=== PATIENT | female | born 1950 | race Caucasian/White ===

== ENCOUNTER 2016-09-21 22:26 | Emergency (ER) | payer BC ==
[2015-09-30 12:41] VITALS: BMI 23.5
[~2016-09-21 22:26] MED LIST: ACID REFLUX MED; ATARAX 25 MG TA25 MG PO; ESGIC TABLET1 TAB PO; KLONOPIN1 MG PO; LEVAQUIN750 MG PO; NEURONTIN 300300 MG PO; OGEN1.5 MG PO; PEPCID AC20 MG PO; PERCOCET 10/3251 TA1 PO; SYNTHROID50 MCG PO; ZOFRAN ODT4 MG/UDTAB PO; ZOLOFT100 MG PO
== END 2016-09-22 00:35 | disposition left against medical advice (07) ==
LOC: D.ER 22:26
DX: M25.551 Pain in right hip (principal)

== ENCOUNTER 2016-10-18 09:49 | Emergency (ER) | payer MEDICARE, BC ==
[2015-09-30 12:41] VITALS: BMI 23.5
== END 2016-10-18 12:19 | disposition home or self-care (01) ==
LOC: D.ER 09:49
DX: R42 Dizziness and giddiness (principal); S90.121A Contusion of right lesser toe(s) without damage to nail, initial encounter; W19.XXXA Unspecified fall, initial encounter; Y93.89 Activity, other specified; Y92.014 Private driveway to single-family (private) house as the place of occurrence of the external cause; S29.011A Strain of muscle and tendon of front wall of thorax, initial encounter

== ENCOUNTER 2016-10-26 16:29 | Emergency (ER) | payer MEDICARE, BC ==
[2015-09-30 12:41] VITALS: BMI 23.5
== END 2016-10-26 19:30 | disposition home or self-care (01) ==
LOC: D.ER 16:29
DX: R42 Dizziness and giddiness (principal); H60.502 Unspecified acute noninfective otitis externa, left ear; E03.9 Hypothyroidism, unspecified

== ENCOUNTER 2016-11-28 11:49 | Emergency (ER) | payer MEDICARE, BC ==
[2015-09-30 12:41] VITALS: BMI 23.5
== END 2016-11-28 14:52 | disposition home or self-care (01) ==
LOC: D.ER 11:49
DX: S20.212A Contusion of left front wall of thorax, initial encounter (principal); X58.XXXA Exposure to other specified factors, initial encounter; Y93.89 Activity, other specified; Y92.019 Unspecified place in single-family (private) house as the place of occurrence of the external cause; E03.9 Hypothyroidism, unspecified

== ENCOUNTER 2017-01-05 07:51 | Emergency (ER) | payer MEDICARE, BC ==
[2015-09-30 12:41] VITALS: BMI 23.5
== END 2017-01-05 09:13 | disposition home or self-care (01) ==
LOC: D.ER 07:51
DX: G89.29 Other chronic pain (principal); E03.9 Hypothyroidism, unspecified

== ENCOUNTER 2017-02-17 14:13 | Emergency (ER) | payer MEDICARE, BC ==
[2015-09-30 12:41] VITALS: BMI 23.5
== END 2017-02-17 15:17 | disposition home or self-care (01) ==
LOC: D.ER 14:13
DX: G89.29 Other chronic pain (principal)

== ENCOUNTER 2017-03-28 10:10 | Emergency (ER) | payer MEDICARE, BC ==
[2015-09-30 12:41] VITALS: BMI 23.5
== END 2017-03-28 11:55 | disposition home or self-care (01) ==
LOC: D.ER 10:10
DX: M54.30 Sciatica, unspecified side (principal); M54.5 Low back pain; M25.50 Pain in unspecified joint; R51 Headache

== ENCOUNTER 2017-04-06 01:59 | Emergency (ER) | payer MEDICARE, BC ==
[2015-09-30 12:41] VITALS: BMI 23.5
== END 2017-04-06 02:45 | disposition home or self-care (01) ==
LOC: D.ER 01:59
DX: G89.29 Other chronic pain (principal); R19.7 Diarrhea, unspecified; R11.0 Nausea

== ENCOUNTER 2017-04-15 08:52 | Observation (INO) | payer MEDICARE, BC ==
[~2017-04-15] VITALS: Ht 170.2 cm; Wt 65.9 kg
[2017-04-15 09:27] LABS: BASOPHILS 0.1 % (0-2); EOSINOPHILS 0.5 % (0-7); HEMATOCRIT 39.9 % (36.0-48.0); HEMOGLOBIN 13.5 g/dL (12-16); IMMATURE GRANULOCYTES 1.6 % (0-5); LYMPHOCYTES 21.6 % (15-50); MCH 28.6 pg (26.0-34.0); MCHC 33.8 g/dL (31.0-37.0); MCV 84.5 fL (80.0-100.0); MEAN PLATELET VOLUME 8.7 fL (7.4-10.4); MONOCYTES 9.8 % (2-11); NEUTROPHILS 66.4 % (40-80); PLATELET COUNT 202 10x3/uL (130-400); RBC 4.72 10x6/uL (4.00-5.40); RDW 14.1 % (11.5-14.5); WBC 8.5 10x3/uL (4.8-10.8)
[2017-04-15 09:42] LABS: ALBUMIN 3.4 g/dL (3.4-5.0); ALKALINE PHOSPHATASE 137 U/L (46-116); ALT (SGPT) 69 U/L (10-68); BILIRUBIN - TOTAL 0.56 mg/dL (0.2-1.3); CALC OSMOLALITY 275 mosm/kg (275-300); CALCIUM 8.4 mg/dL (8.5-10.1); CARBON DIOXIDE 25.9 mmol/L (21.0-32.0); CHLORIDE - SERUM 102 mmol/L (98-107); CREATININE - SERUM 0.8 mg/dL (0.6-1.3); GLUCOSE 94 mg/dL (74-106); POTASSIUM - SERUM 3.8 mmol/L (3.5-5.1); SODIUM 136 mmol/L (136-145); UREA NITROGEN 23 mg/dL (7-18); eGFR NON AFRICAN AMERICAN 76 mL/min (90-120)
[2017-04-15 09:54] LABS: CKMB 0.6 U/L (0.0-3.6); CREATINE KINASE 66 UL (21-215)
[2017-04-15 09:58] LABS: TROPONIN-I < 0.017 ng/mL (0.000-0.060)
--- NOTE | 2017-04-15 11:32 | NUR ---
RECEIVED REPORT FROM JOSE F FROM ER
--- NOTE | 2017-04-15 11:47 | NUR ---
PT TO FLOOR ALERT AND ORIENTED WILL ADMIT
[2017-04-15] MEDS ORDERED: NEURONTIN600 MG PO (11:49)
[2017-04-15] MEDS ORDERED: MOBIC7.5 MG PO (11:49)
[2017-04-15] MEDS ORDERED: SYNTHROID25 MCG PO (11:49)
[2017-04-15] MEDS ORDERED: ZANAFLEX4 MG PO (11:49)
[2017-04-15] MEDS ORDERED: PERCOCET 10/3251 TA1 PO (11:51)
[2017-04-15 11:53] VITALS: BP 168/82; Ht 170.2 cm; Wt 65.9 kg
--- NOTE | 2017-04-15 12:02 | NUR ---
PT ADMISSION COMPLETE. PT SITTING UP IN BED EATING DINNER DENIES ANY NEEDS WILL CONT TO MONITOR
--- NOTE | 2017-04-15 15:39 | NUR ---
SPOKE WITH DR WHEATLEY ABOUT PT STILL HAVING A HEADACHE POST DEMEROL PO 50MG. SAID TO GIVE PT ANOTHER DOSE NOW. HE WOULD COME SEE PT SOON
--- NOTE | 2017-04-15 17:07 | NUR ---
WENT OVER DC PAPERWORK WITH PT PT VERBALIZES UNDERSTANDING. DC PIV WITH CATH TIP INTACT DC TELE AND RETURNED TO RN ENTEROSTOMAL. PT REFUSED WHEELCHAIR AND WALKED OUT WITH DAUGHTER AND GRANDDAUGHTER.
--- NOTE | 2017-04-16 13:52 | DS ---
PATIENT:WILBER CHILDRESS :52 MEDICAL RECORD: [id number] DISCHARGE SUMMARY ADMISSION DATE: 04/15/17 DISCHARGE DATE: 04/15/17 DISCHARGE DIAGNOSIS: Chest pain, noncardiac. HISTORY OF PRESENT ILLNESS: Ms. Childress presents with chest pain. Multiple troponins were negative. She had a cardiac catheterization in 2014 with no disease. She had no EKG changes, discharged home. Follow up with her primary care doctor for noncardiac chest pain. TRANSINT:[id number] Voice Confirmation ID: [id number] DOCUMENT ID: [id number] PETE WHEATLEY MD at 1352 CC: [id number] DICTATION DATE: 04/15/17 164 FINANCIAL PLANNING ADVISOR: 04/16/17 0338 DIS IN 04/15/17 [id number] [place] [address]
--- NOTE | 2017-04-16 13:52 | HP ---
PATIENT: WILBER CHILDRESS MEDICAL RECORD: [id number] ACCOUNT: [id number] LOCATION:[address] : 52 ADMISSION DATE: 04/15/17 HISTORY AND PHYSICAL EXAMINATION ADMITTING DIAGNOSES: 1. Chest pain. 2. Chronic pain syndrome. HISTORY OF PRESENT ILLNESS: Ms. Childress presents with chest pain. She underwent cardiac catheterization 2 years ago revealing no significant coronary artery disease. She has a normal EKG, normal troponin. PHYSICAL EXAMINATION: GENERAL APPEARANCE: Well-nourished, well-developed, appears stated age. Level of distress, comfortable. PSYCHIATRIC: Mental status, alert, normal affect. Orientation, oriented to time, place and person. EYES: Lids and conjunctiva, noninjected. No discharge, no pallor. ENT: Lips, teeth, gums, normal dentition. Oropharynx, no cyanosis, no pallor. NECK: Carotid arteries, bilateral normal upstroke, no bruits, no thrills. JUGULAR VEINS: No jugular venous pressure or distention. CERVICAL LYMPH NODES: Nontender, nonenlarged. THYROID: Not enlarged. Nontender. No nodules. LUNGS: Respiratory effort, unlabored. CHEST: Normal curvature. No thoracic deformity. No chest wall tenderness. Percussion, resonant. Auscultation, clear. No wheezes, no rales, no rhonchi. CARDIOVASCULAR: Precordial exam, nondisplaced. No heaves or pericardial thrills. Rate and rhythm, regular. Heart sounds, normal S1, normal S2. No S3, no gallop, no rub. Systolic murmur, not heard. Diastolic murmur, not heard. EXTREMITIES: No cyanosis, no edema. Peripheral pulses, full and equal in all extremities, except as noted. No bruits appreciated. ABDOMEN: Soft, nondistended. Normal aorta. No bruit. Nontender. No masses. Liver, nontender, no hepatomegaly. Spleen, nontender, no splenomegaly. MUSCULOSKELETAL: No joint tenderness. No joint swelling. No erythema. NEUROLOGICAL: Normal gait, normal strength, normal tone. SKIN: Warm and dry. REVIEW OF SYSTEMS: The patient reports easy bruising but reports no swollen glands. The patient reports no fever, no night sweats, no significant weight gain, no significant weight loss. No significant exercise tolerance. The patient reports no dry eyes, no irritation, no vision change. Patient reports no difficulty hearing and no ear pain. Patient reports no frequent nose bleeds or nose and sinus problems. Patient reports on arm pain on exertion. No shortness of breath while lying down. No history of heart murmur. Patient reports no cough, no wheezing or coughing up blood. Patient reports no abdominal pain, no vomiting. Normal appetite. No diarrhea and not vomiting blood. No nausea and no constipation. Patient reports no incontinence. No difficulty urinating. No hematuria. No increased frequency. Patient reports no muscle aches. No weakness, no arthralgias, no back pain. No swelling of the extremities. Patient reports no abnormal mole, no jaundice, no rashes. Reports no loss of consciousness. No weakness and no numbness. No seizures, dizziness, or headaches. The patient reports no depression, no sleep disturbance, feeling safe in a relationship and no alcohol abuse. Patient reports on fatigue. Reports no runny nose or sinus pressure. No itching, no hives, and no frequent HISTORY AND PHYSICAL [id number] WILBER CHILDRESS sneezing. OVERALL IMPRESSION: Chest pain is most likely musculoskeletal, noncardiac in etiology. At this time, we will cycle her enzymes times 1. No other cardiac workup is necessary. TRANSINT:[id number] Voice Confirmation ID: [id number] DOCUMENT ID: [id number] PETE WHEATLEY MD at 1352 CC: [id number] DICTATION DATE: 04/15/17 1312 POT PRESS OPERATOR: 04/15/17 1320 DIS IN 04/15/17 [place] [address]
== END 2017-04-15 17:09 | disposition home or self-care (01) ==
LOC: D.ER 08:52 → OBSVTIME 11:15 → D.M2 11:15
PROVIDERS: Emergency Medicine; ADMIT Internal Medicine Interventional Cardiology
DX: R07.89 Other chest pain (principal); G89.4 Chronic pain syndrome

== ENCOUNTER 2018-05-05 14:59 | Emergency (ER) | payer MEDICARE, BC ==
[~2018-05-05] VITALS: Ht 170.2 cm; Wt 66.4 kg
[~2018-05-05 14:59] MED LIST changes: +MOBIC7.5 MG PO; +NEURONTIN600 MG PO; +SYNTHROID25 MCG PO; +ZANAFLEX4 MG PO
[2018-05-05 15:11] VITALS: Ht 170.2 cm; Wt 66.4 kg
[2018-05-05 18:09] VITALS: BP 145/85
== END 2018-05-05 18:13 | disposition home or self-care (01) ==
LOC: D.ER 14:59
DX: M54.16 Radiculopathy, lumbar region (principal); M25.551 Pain in right hip; I25.10 Atherosclerotic heart disease of native coronary artery without angina pectoris; L81.7 Pigmented purpuric dermatosis; Z85.828 Personal history of other malignant neoplasm of skin

== ENCOUNTER 2018-05-20 14:51 | Emergency (ER) | payer MEDICARE, BC ==
[~2018-05-20] VITALS: Ht 170.2 cm; Wt 68.0 kg
[2018-05-20 15:33] VITALS: Ht 170.2 cm; Wt 68.0 kg
[2018-05-20] MEDS ORDERED: ZANAFLEX4 MG PO (17:14)
[2018-05-20 17:37] VITALS: BP 137/087
== END 2018-05-20 17:39 | disposition home or self-care (01) ==
LOC: D.ER 14:51
DX: M51.16 Intervertebral disc disorders with radiculopathy, lumbar region (principal); I25.10 Atherosclerotic heart disease of native coronary artery without angina pectoris; Z87.820 Personal history of traumatic brain injury; Z85.828 Personal history of other malignant neoplasm of skin

== ENCOUNTER 2018-06-14 18:16 | Emergency (ER) | payer MEDICARE, BC ==
[~2018-06-14] VITALS: Ht 170.2 cm; Wt 72.7 kg
[2018-06-14 18:36] VITALS: Ht 170.2 cm; Wt 72.7 kg
[2018-06-14] MEDS ORDERED: BUTALB-APAP-CA1 EACH PO (23:11)
[2018-06-14 23:26] VITALS: BP 185/95
== END 2018-06-14 23:29 | disposition home or self-care (01) ==
LOC: D.ER 18:16
DX: T40.2X5A Adverse effect of other opioids, initial encounter (principal); Y92.019 Unspecified place in single-family (private) house as the place of occurrence of the external cause; R51 Headache

== ENCOUNTER 2018-07-30 10:44 | Emergency (ER) | payer MEDICARE, BC ==
[~2018-07-30] VITALS: Ht 170.2 cm; Wt 71.4 kg
[~2018-07-30 10:44] MED LIST changes: +BUTALB-APAP-CA1 EACH PO
[2018-07-30 10:46] VITALS: Ht 170.2 cm; Wt 71.4 kg
[2018-07-30 11:14] LABS: BASOPHILS 0.3 % (0-2); EOSINOPHILS 1.9 % (0-7); HEMATOCRIT 42.2 % (36.0-48.0); HEMOGLOBIN 14.1 g/dL (12-16); IMMATURE GRANULOCYTES 0.6 % (0-5); LYMPHOCYTES 23.6 % (15-50); MCH 29.3 pg (26.0-34.0); MCHC 33.4 g/dL (31.0-37.0); MCV 87.6 fL (80.0-100.0); MEAN PLATELET VOLUME 9.1 fL (7.4-10.4); MONOCYTES 9.1 % (2-11); NEUTROPHILS 64.5 % (40-80); PLATELET COUNT 222 10x3/uL (130-400); RBC 4.82 10x6/uL (4.00-5.40); RDW 14.2 % (11.5-14.5)
[2018-07-30 11:29] LABS: APPEARANCE CLEAR (CLEAR); BILIRUBIN NEGATIVE (NEGATIVE); COLOR YELLOW (YELLOW); GLUCOSE NEGATIVE (NEGATIVE); KETONE NEGATIVE (NEGATIVE); NITRITE NEGATIVE (NEGATIVE); PROTEIN TRACE mg/dL (NEGATIVE); SPECIFIC GRAVITY 1.015 (1.005-1.020); UROBILINOGEN NORMAL (NORMAL)
[2018-07-30 11:30] LABS: BACTERIA FEW /hpf (NONE SEEN); EPITHELIAL CELLS 0-5 /hpf (0-5); RED CELLS - URINE 0-5 /hpf (0-5); WHITE CELLS - URINE 0-5 /hpf (0-5)
[2018-07-30 11:31] LABS: ALBUMIN 3.9 g/dL (3.4-5.0); ANION GAP 14.5 mmol/L (8-16); BILIRUBIN - TOTAL 0.38 mg/dL (0.2-1.3); CARBON DIOXIDE 26.8 mmol/L (21.0-32.0); CREATININE - SERUM 0.9 mg/dL (0.6-1.3); POTASSIUM - SERUM 3.3 mmol/L (3.5-5.1); PROTEIN - SERUM 7.8 g/dL (6.4-8.2)
[2018-07-30 14:00] VITALS: BP 165/92
== END 2018-07-30 14:00 | disposition home or self-care (01) ==
LOC: D.ER 10:44
PROVIDERS: Family Medicine
DX: A08.4 Viral intestinal infection, unspecified (principal); R10.9 Unspecified abdominal pain; R74.8 Abnormal levels of other serum enzymes

== ENCOUNTER 2018-08-16 16:29 | Emergency (ER) | payer MEDICARE, BC ==
[~2018-08-16] VITALS: Ht 170.2 cm; Wt 72.7 kg
[2018-08-16 16:33] VITALS: Ht 170.2 cm; Wt 72.7 kg
[2018-08-16] MEDS ORDERED: PEPCID AC20 MG PO (16:35)
[2018-08-16 19:14] VITALS: BP 174/79
== END 2018-08-16 19:16 | disposition home or self-care (01) ==
LOC: D.ER 16:29
DX: B34.9 Viral infection, unspecified (principal); K58.0 Irritable bowel syndrome with diarrhea; M54.2 Cervicalgia

== ENCOUNTER 2018-12-17 14:48 | Emergency (ER) | payer MEDICARE, BC ==
[~2018-12-17] VITALS: Ht 170.2 cm; Wt 68.6 kg
[2018-12-17 14:55] VITALS: Ht 170.2 cm; Wt 68.6 kg
[2018-12-17 15:20] LABS: COLOR RED (YELLOW)
[2018-12-17 15:21] LABS: APPEARANCE CLOUDY (CLEAR); BILIRUBIN NEGATIVE (NEGATIVE); GLUCOSE NEGATIVE (NEGATIVE); KETONE NEGATIVE (NEGATIVE); NITRITE NEGATIVE (NEGATIVE); PH 5.5 (5.0-6.0); PROTEIN NEGATIVE (NEGATIVE); RED CELLS - URINE 25-50 /hpf (0-5); SPECIFIC GRAVITY 1.015 (1.005-1.020); UROBILINOGEN NORMAL (NORMAL); WHITE CELLS - URINE 0-5 /hpf (0-5)
[2018-12-17 15:36] LABS: BASOPHILS 0.5 % (0-2); EOSINOPHILS 3.7 % (0-7); HEMATOCRIT 40.3 % (36.0-48.0); HEMOGLOBIN 13.2 g/dL (12-16); IMMATURE GRANULOCYTES 0.5 % (0-5); LYMPHOCYTES 31.9 % (15-50); MCH 28.5 pg (26.0-34.0); MCHC 32.8 g/dL (31.0-37.0); MEAN PLATELET VOLUME 9.2 fL (7.4-10.4); MONOCYTES 7.6 % (2-11); NEUTROPHILS 55.8 % (40-80); PLATELET COUNT 224 10x3/uL (130-400); RBC 4.63 10x6/uL (4.00-5.40); RDW 13.9 % (11.5-14.5); WBC 5.7 10x3/uL (4.8-10.8)
[2018-12-17 15:52] LABS: ALBUMIN 3.9 g/dL (3.4-5.0); ANION GAP 12.5 mmol/L (8-16); BILIRUBIN - TOTAL 0.39 mg/dL (0.2-1.3); CALCIUM 8.5 mg/dL (8.5-10.1); CARBON DIOXIDE 26.2 mmol/L (21.0-32.0); POTASSIUM - SERUM 3.7 mmol/L (3.5-5.1); PROTEIN - SERUM 7.6 g/dL (6.4-8.2)
[2018-12-17] MEDS ORDERED: PHENAZOPYRIDIN100 MG PO (17:44)
[2018-12-17] MEDS ORDERED: MACROBID100 MG PO (17:44)
[2018-12-17 18:25] VITALS: BP 145/88
== END 2018-12-17 18:26 | disposition home or self-care (01) ==
LOC: D.ER 14:48
PROVIDERS: Family Medicine
DX: N39.0 Urinary tract infection, site not specified (principal); M54.5 Low back pain; R30.0 Dysuria; R33.9 Retention of urine, unspecified

== ENCOUNTER 2018-12-28 08:00 | Day surgery (SDC) | payer MEDICARE, BC ==
[2018-12-27 11:12] LABS: HEMATOCRIT 40.9 % (36.0-48.0); HEMOGLOBIN 13.2 g/dL (12-16); MCH 28.3 pg (26.0-34.0); MCHC 32.3 g/dL (31.0-37.0); MCV 87.6 fL (80.0-100.0); MEAN PLATELET VOLUME 9.6 fL (7.4-10.4); RBC 4.67 10x6/uL (4.00-5.40); RDW 13.9 % (11.5-14.5); WBC 7.8 10x3/uL (4.8-10.8)
[~2018-12-28] VITALS: Ht 170.2 cm; Wt 68.0 kg
--- NOTE | ~2018-12-28 | OP ---
PATIENT NAME: WILBER DENNISON MEDICAL RECORD: [id number] :52 LOCATION:[facility] ADMISSION DATE: SURGEON: RIC MOTA DPM DATE OF OPERATION: 12/28/2018 PREOPERATIVE DIAGNOSIS: Hammertoe, left fifth digit. POSTOPERATIVE DIAGNOSIS: Hammertoe, left fifth digit. PROCEDURE: PIPJ arthroplasty, left fifth digit. ANESTHESIA: General with local infiltrate utilizing lidocaine and Marcaine plain around the fifth digit, approximately 3 cc total. HEMOSTASIS: Left ankle tourniquet at 250 mmHg. PREOPERATIVE DETAILS: The patient was taken to the OR and placed on the operating table in supine position. This was followed by induction of general anesthesia and infiltration of local anesthetic. The left extremity was then prepped and draped in usual aseptic technique followed by exsanguination and inflation of tourniquet. A 15 blade was used to create a 1.5 cm linear incision over the dorsal aspect of the PIPJ of the left fifth digit. Dissection was carried down to the extensor longus tendon, which was transected. The head of the proximal phalanx was delivered and removed with a rongeur. The wound was flushed. The extensor longus tendon was repaired with 4-0 Rapide, the subcutaneous tissue was reapproximated with 4-0 Rapide and the skin was closed with 4-0 Rapide in a running interlocking technique followed by Dermabond. Adaptic, 4 x 4 and Conform were used to dress the wound followed by Coban. Tourniquet was deflated. POSTOPERATIVE DETAILS: The patient tolerated the procedure well and left the OR with vital signs stable and vascular status at preop levels. The patient was transported to recovery per anesthesia in stable condition. TRANSINT:[id number] Voice Confirmation ID: [id number] DOCUMENT ID: [id number] RIC MOTA DPM CC: [id number] DICTATION DATE: 12/28/18 1249 MANAGER OF INFORMATION: 12/28/18 1358 [place] [address]
[~2018-12-28 08:00] MED LIST changes: +MACROBID100 MG PO; +PHENAZOPYRIDIN100 MG PO
[2018-12-28 08:38] VITALS: BP 139/61; Ht 170.2 cm; Wt 68.0 kg
--- NOTE | 2018-12-28 13:25 | NUR ---
REC'D FROM RR. FAMILY AT BEDSIDE. FL TRAY AND APPLE JUICE BROUGHT TO PT. DRESSING CDI TO LEFT FOOT WITH ICE PACK IN PLACE.
--- NOTE | 2018-12-28 13:55 | NUR ---
TOLERATEING FL DIET. AMUBULATED TO BATHROOM AND VOIDED WITHOUT DIFFICULTY.
--- NOTE | 2018-12-28 14:25 | NUR ---
FOOT ELEVATED. ICE PACK IN USE. FAMILY AT BEDSIDE. DRESSING CDI.
--- NOTE | 2018-12-28 15:00 | NUR ---
WRITTEN AND VERBAL DC INST. GIVEN TO PT ALONG WITH RX. VERBALIZED UNDERSTANDING.
--- NOTE | 2018-12-28 15:15 | NUR ---
DC'D HOME WITH FAMILY VIA PRIVATE VEHICLE. TAKEN TO VEHICLE VIA WC. STABLE AT TIME OF DC.
== END 2018-12-28 15:15 | disposition home or self-care (01) ==
LOC: D.OPS 08:00 → D.PAN 12:30 → D.OPS 15:15
PROVIDERS: Anesthesiology; ATTEND Podiatrist
DX: M20.42 Other hammer toe(s) (acquired), left foot (principal); Z01.812 Encounter for preprocedural laboratory examination

== ENCOUNTER 2019-05-02 09:41 | Emergency (ER) | payer MEDICARE, BC ==
[~2019-05-02] VITALS: Ht 170.2 cm; Wt 68.0 kg
[2019-05-02 10:03] VITALS: Ht 170.2 cm; Wt 68.0 kg
[2019-05-02 11:43] LABS: APPEARANCE HAZY (CLEAR); BILIRUBIN NEGATIVE (NEGATIVE); COLOR YELLOW (YELLOW); GLUCOSE NEGATIVE (NEGATIVE); KETONE NEGATIVE (NEGATIVE); NITRITE NEGATIVE (NEGATIVE); PROTEIN NEGATIVE (NEGATIVE); UROBILINOGEN NORMAL (NORMAL)
[2019-05-02 11:44] LABS: BACTERIA FEW /hpf (NONE SEEN); EPITHELIAL CELLS OCC /hpf (0-5); HYALINE CAST 0-5 /lpf (NONE SEEN); MUCUS >1+ /lpf (NONE SEEN); RED CELLS - URINE RARE /hpf (0-5); WHITE CELLS - URINE 0-5 /hpf (0-5)
[2019-05-02] MEDS ORDERED: CIPRO500 MG PO (11:57)
[2019-05-02 12:48] VITALS: BP 136/92
== END 2019-05-02 12:49 | disposition home or self-care (01) ==
LOC: D.ER 09:41
PROVIDERS: Family Medicine
DX: R07.9 Chest pain, unspecified (principal); N39.0 Urinary tract infection, site not specified; E03.9 Hypothyroidism, unspecified; K21.9 Gastro-esophageal reflux disease without esophagitis

== ENCOUNTER 2019-09-09 13:51 | Emergency (ER) | payer MEDICARE, BC ==
[~2019-09-09] VITALS: Ht 170.2 cm; Wt 68.2 kg
[~2019-09-09 13:51] MED LIST changes: +CIPRO500 MG PO
[2019-09-09 14:17] VITALS: Ht 170.2 cm; Wt 68.2 kg
[2019-09-09 16:14] VITALS: BP 136/68
[2019-09-10] MEDS ORDERED: BACLOFEN20 M1 PO (12:54)
[2019-09-10] MEDS ORDERED: TALWIN NX1 TAB PO (12:54)
[2019-09-10] MEDS ORDERED: MACROBID100 MG PO (12:54)
== END 2019-09-09 16:15 | disposition home or self-care (01) ==
LOC: D.ER 13:51
DX: M54.5 Low back pain (principal); E07.9 Disorder of thyroid, unspecified; K21.9 Gastro-esophageal reflux disease without esophagitis; M19.90 Unspecified osteoarthritis, unspecified site

== ENCOUNTER 2019-09-10 10:43 | Emergency (ER) | payer MEDICARE, BC ==
[~2019-09-10] VITALS: Ht 170.2 cm; Wt 68.2 kg
[2019-09-10 10:44] VITALS: Ht 170.2 cm; Wt 68.2 kg
[2019-09-10 11:20] LABS: APPEARANCE CLEAR (CLEAR); BILIRUBIN NEGATIVE (NEGATIVE); COLOR YELLOW (YELLOW); GLUCOSE NEGATIVE (NEGATIVE); KETONE NEGATIVE (NEGATIVE); NITRITE NEGATIVE (NEGATIVE); PROTEIN NEGATIVE (NEGATIVE); UROBILINOGEN NORMAL (NORMAL)
[2019-09-10 11:40] LABS: BASOPHILS 0.4 % (0-2); EOSINOPHILS 6.2 % (0-7); HEMOGLOBIN 12.7 g/dL (12-16); IMMATURE GRANULOCYTES 0.8 % (0-5); LYMPHOCYTES 27.1 % (15-50); MCH 28.4 pg (26.0-34.0); MCHC 32.6 g/dL (31.0-37.0); MCV 87.2 fL (80.0-100.0); MEAN PLATELET VOLUME 9.5 fL (7.4-10.4); MONOCYTES 9.6 % (2-11); NEUTROPHILS 55.9 % (40-80); PLATELET COUNT 224 10x3/uL (130-400); RBC 4.47 10x6/uL (4.00-5.40); RDW 13.8 % (11.5-14.5)
[2019-09-10 11:54] LABS: CALC OSMOLALITY 283 mosm/kg (275-300); CALCIUM 8.4 mg/dL (8.5-10.1); CARBON DIOXIDE 30.1 mmol/L (21.0-32.0); CHLORIDE - SERUM 104 mmol/L (98-107); CREATININE - SERUM 0.8 mg/dL (0.6-1.3); GLUCOSE 116 mg/dL (74-106); SODIUM 140 mmol/L (136-145); UREA NITROGEN 23 mg/dL (7-18); eGFR NON AFRICAN AMERICAN 76 mL/min (90-120)
[2019-09-10 12:00] LABS: ALBUMIN 3.4 g/dL (3.4-5.0); ALKALINE PHOSPHATASE 102 U/L (30-120); ALT (SGPT) 22 U/L (10-68); BILIRUBIN - TOTAL 0.21 mg/dL (0.2-1.3); PROTEIN - SERUM 7.1 g/dL (6.4-8.2)
[2019-09-10] MEDS ORDERED: BACLOFEN20 M1 PO (12:54)
[2019-09-10] MEDS ORDERED: MACROBID100 MG PO (12:54)
[2019-09-10] MEDS ORDERED: TALWIN NX1 TAB PO (12:54)
[2019-09-10 13:50] VITALS: BP 109/59
== END 2019-09-10 13:50 | disposition home or self-care (01) ==
LOC: D.ER 10:43
PROVIDERS: Family Medicine
DX: M54.5 Low back pain (principal); N39.0 Urinary tract infection, site not specified; E07.9 Disorder of thyroid, unspecified; K21.9 Gastro-esophageal reflux disease without esophagitis

== ENCOUNTER 2019-09-12 04:42 | Emergency (ER) | payer MEDICARE, BC ==
[~2019-09-12] VITALS: Ht 170.2 cm; Wt 68.2 kg
[~2019-09-12 04:42] MED LIST changes: +BACLOFEN20 M1 PO; +TALWIN NX1 TAB PO
[2019-09-12 04:58] VITALS: Ht 170.2 cm; Wt 68.2 kg
[2019-09-12 05:15] LABS: BASOPHILS 0.2 % (0-2); EOSINOPHILS 1.8 % (0-7); HEMATOCRIT 41.6 % (36.0-48.0); HEMOGLOBIN 13.4 g/dL (12-16); IMMATURE GRANULOCYTES 0.5 % (0-5); MCH 28.3 pg (26.0-34.0); MCHC 32.2 g/dL (31.0-37.0); MCV 87.9 fL (80.0-100.0); MEAN PLATELET VOLUME 9.8 fL (7.4-10.4); MONOCYTES 8.9 % (2-11); NEUTROPHILS 52.6 % (40-80); RBC 4.73 10x6/uL (4.00-5.40); RDW 14.1 % (11.5-14.5)
[2019-09-12 05:19] LABS: CALC OSMOLALITY 288 mosm/kg (275-300); CALCIUM 8.9 mg/dL (8.5-10.1); CARBON DIOXIDE 30.7 mmol/L (21.0-32.0); CHLORIDE - SERUM 106 mmol/L (98-107); CREATININE - SERUM 0.9 mg/dL (0.6-1.3); GLUCOSE 93 mg/dL (74-106); SODIUM 142 mmol/L (136-145); UREA NITROGEN 28 mg/dL (7-18); eGFR NON AFRICAN AMERICAN 66 mL/min (90-120)
[2019-09-12 05:27] LABS: INR 0.89 (0.85-1.17)
[2019-09-12 05:28] LABS: PLATELET COUNT 271 10x3/uL (130-400); WBC 10.2 10x3/uL (4.8-10.8)
[2019-09-12 05:37] LABS: ALBUMIN 3.8 g/dL (3.4-5.0); ALKALINE PHOSPHATASE 113 U/L (30-120); ALT (SGPT) 23 U/L (10-68); BILIRUBIN - TOTAL 0.17 mg/dL (0.2-1.3); CKMB 0.5 U/L (0.0-3.6); CREATINE KINASE 46 UL (21-215); PROTEIN - SERUM 7.8 g/dL (6.4-8.2); THYROID STIMULATING HORMONE 3.21 uIU/mL (0.36-3.74); TROPONIN-I < 0.017 ng/mL (0.000-0.060)
[2019-09-12 05:55] LABS: APPEARANCE CLEAR (CLEAR); BILIRUBIN NEGATIVE (NEGATIVE); COLOR YELLOW (YELLOW); GLUCOSE NEGATIVE (NEGATIVE); KETONE NEGATIVE (NEGATIVE); NITRITE NEGATIVE (NEGATIVE); PROTEIN NEGATIVE (NEGATIVE); UROBILINOGEN NORMAL (NORMAL)
[2019-09-12 06:30] VITALS: BP 148/93
== END 2019-09-12 06:32 | disposition other institution (70) ==
LOC: D.ER 04:42
PROVIDERS: Family Medicine
DX: G25.9 Extrapyramidal and movement disorder, unspecified (principal); G21.19 Other drug induced secondary parkinsonism; E07.9 Disorder of thyroid, unspecified; K21.9 Gastro-esophageal reflux disease without esophagitis

== ENCOUNTER 2019-09-15 16:27 | Emergency (ER) | payer MEDICARE, BC ==
[~2019-09-15] VITALS: Ht 170.2 cm; Wt 68.2 kg
[2019-09-15 16:30] VITALS: Ht 170.2 cm; Wt 68.2 kg
[2019-09-15 17:29] LABS: BASOPHILS 0.3 % (0-2); EOSINOPHILS 7.7 % (0-7); HEMATOCRIT 39.7 % (36.0-48.0); HEMOGLOBIN 12.7 g/dL (12-16); IMMATURE GRANULOCYTES 0.5 % (0-5); LYMPHOCYTES 31.2 % (15-50); MCH 28.4 pg (26.0-34.0); MCV 88.8 fL (80.0-100.0); MEAN PLATELET VOLUME 9.1 fL (7.4-10.4); MONOCYTES 9.9 % (2-11); NEUTROPHILS 50.4 % (40-80); PLATELET COUNT 226 10x3/uL (130-400); RBC 4.47 10x6/uL (4.00-5.40); RDW 14.2 % (11.5-14.5); WBC 5.8 10x3/uL (4.8-10.8)
[2019-09-15 17:53] LABS: ANION GAP 12.7 mmol/L (8-16); CALCIUM 8.7 mg/dL (8.5-10.1); CARBON DIOXIDE 30.2 mmol/L (21.0-32.0); CREATININE - SERUM 0.9 mg/dL (0.6-1.3); POTASSIUM - SERUM 3.9 mmol/L (3.5-5.1)
[2019-09-15 17:56] LABS: APPEARANCE CLEAR (CLEAR); BILIRUBIN NEGATIVE (NEGATIVE); COLOR YELLOW (YELLOW); GLUCOSE NEGATIVE (NEGATIVE); KETONE NEGATIVE (NEGATIVE); NITRITE NEGATIVE (NEGATIVE); PROTEIN NEGATIVE (NEGATIVE); SPECIFIC GRAVITY 1.015 (1.005-1.020); UROBILINOGEN NORMAL (NORMAL)
[2019-09-15 17:59] LABS: ALBUMIN 3.4 g/dL (3.4-5.0); BILIRUBIN - TOTAL 0.32 mg/dL (0.2-1.3); MAGNESIUM - SERUM 2.2 mg/dL (1.8-2.4); PROTEIN - SERUM 7.3 g/dL (6.4-8.2)
[2019-09-15 18:07] LABS: UDS - AMPHET NEGATIVE QUAL (NEGATIVE); UDS - BARB NEGATIVE QUAL (NEGATIVE); UDS - BENZO POSITIVE QUAL (NEGATIVE); UDS - COCAINE NEGATIVE QUAL (NEGATIVE); UDS - OPIATE NEGATIVE QUAL (NEGATIVE); UDS - PCP NEGATIVE QUAL (NEGATIVE); UDS - THC NEGATIVE QUAL (NEGATIVE)
[2019-09-15] MEDS ORDERED: EC-NAPROSYN500 MG PO (18:12)
[2019-09-15] MEDS ORDERED: VALIUM 2 MG TAB2 MG PO (18:12)
[2019-09-15 19:25] VITALS: BP 131/70
== END 2019-09-15 19:25 | disposition home or self-care (01) ==
LOC: D.ER 16:27
PROVIDERS: Family Medicine
DX: S39.012A Strain of muscle, fascia and tendon of lower back, initial encounter (principal); M62.838 Other muscle spasm; R94.5 Abnormal results of liver function studies; M51.26 Other intervertebral disc displacement, lumbar region; E07.9 Disorder of thyroid, unspecified; K21.9 Gastro-esophageal reflux disease without esophagitis; X50.1XXA Overexertion from prolonged static or awkward postures, initial encounter; Y93.9 Activity, unspecified; Y92.9 Unspecified place or not applicable

== ENCOUNTER 2020-03-11 05:04 | Emergency (ER) | payer MEDICARE, BC ==
[2019-09-15 16:30] VITALS: Ht 170.2 cm; Wt 67.7 kg
[~2020-03-11] VITALS: Ht 170.2 cm; Wt 67.7 kg
[~2020-03-11 05:04] MED LIST changes: +EC-NAPROSYN500 MG PO; +VALIUM 2 MG TAB2 MG PO
[2020-03-11] MEDS ORDERED: PEPCID40 MG PO (05:18)
[2020-03-11] MEDS ORDERED: NEURONTIN600 MG PO (05:18)
[2020-03-11 05:51] LABS: BASOPHILS 0.4 % (0-2); EOSINOPHILS 5.9 % (0-7); HEMOGLOBIN 13.2 g/dL (12-16); IMMATURE GRANULOCYTES 0.4 % (0-5); LYMPHOCYTES 26.1 % (15-50); MCH 27.7 pg (26.0-34.0); MCHC 31.4 g/dL (31.0-37.0); MCV 88.2 fL (80.0-100.0); MEAN PLATELET VOLUME 8.9 fL (7.4-10.4); MONOCYTES 13.6 % (2-11); NEUTROPHILS 53.6 % (40-80); PLATELET COUNT 190 10x3/uL (130-400); RBC 4.76 10x6/uL (4.00-5.40); RDW 14.7 % (11.5-14.5); WBC 4.6 10x3/uL (4.8-10.8)
[2020-03-11 06:04] LABS: CALC OSMOLALITY 279 mosm/kg (275-300); CALCIUM 9.2 mg/dL (8.5-10.1); CARBON DIOXIDE 30.4 mmol/L (21.0-32.0); CHLORIDE - SERUM 104 mmol/L (98-107); CREATININE - SERUM 0.8 mg/dL (0.6-1.3); GLUCOSE 101 mg/dL (74-106); POTASSIUM - SERUM 3.6 mmol/L (3.5-5.1); SODIUM 141 mmol/L (136-145); UREA NITROGEN 9 mg/dL (7-18); eGFR NON AFRICAN AMERICAN 75 mL/min (90-120)
[2020-03-11 06:11] LABS: ALBUMIN 3.8 g/dL (3.4-5.0); ALKALINE PHOSPHATASE 187 U/L (30-120); ALT (SGPT) 52 U/L (10-68); BILIRUBIN - TOTAL 0.39 mg/dL (0.2-1.3); PROTEIN - SERUM 7.7 g/dL (6.4-8.2)
[2020-03-11] MEDS ORDERED: HYDROCODON-ACE1 EA10 PO (06:28)
[2020-03-11 06:36] VITALS: BP 164/71
== END 2020-03-11 06:36 | disposition home or self-care (01) ==
LOC: D.ER 05:04
PROVIDERS: Emergency Medicine
DX: R51 Headache (principal); R25.1 Tremor, unspecified; E07.9 Disorder of thyroid, unspecified; K21.9 Gastro-esophageal reflux disease without esophagitis

== ENCOUNTER 2020-03-31 05:47 | Inpatient (IN) | payer MEDICARE, BC ==
[~2020-03-31] VITALS: Ht 170.2 cm; Wt 61.4 kg
[~2020-03-31 05:47] MED LIST changes: +HYDROCODON-ACE1 EA10 PO; +PEPCID40 MG PO
[2020-03-31 06:37] LABS: CALC OSMOLALITY 275 mosm/kg (275-300); CALCIUM 8.6 mg/dL (8.5-10.1); CHLORIDE - SERUM 105 mmol/L (98-107); CREATININE - SERUM 0.8 mg/dL (0.6-1.3); GLUCOSE 108 mg/dL (74-106); SODIUM 138 mmol/L (136-145); UREA NITROGEN 10 mg/dL (7-18); eGFR NON AFRICAN AMERICAN 75 mL/min (90-120)
[2020-03-31 06:53] LABS: BASOPHILS 0.3 % (0-2); HEMATOCRIT 39.8 % (36.0-48.0); HEMOGLOBIN 12.5 g/dL (12-16); IMMATURE GRANULOCYTES 0.3 % (0-5); LYMPHOCYTES 30.1 % (15-50); MCH 27.6 pg (26.0-34.0); MCHC 31.4 g/dL (31.0-37.0); MCV 87.9 fL (80.0-100.0); MEAN PLATELET VOLUME 10.1 fL (7.4-10.4); MONOCYTES 11.7 % (2-11); NEUTROPHILS 51.6 % (40-80); RBC 4.53 10x6/uL (4.00-5.40); RDW 14.3 % (11.5-14.5); WBC 3.9 10x3/uL (4.8-10.8)
[2020-03-31 06:54] LABS: ALBUMIN 3.4 g/dL (3.4-5.0); ALKALINE PHOSPHATASE 113 U/L (30-120); ALT (SGPT) 19 U/L (10-68); BILIRUBIN - TOTAL 0.35 mg/dL (0.2-1.3); CKMB 0.5 U/L (0.0-3.6); CREATINE KINASE 58 UL (21-215); PRO BNP 1060 pg/mL (0-125); PROTEIN - SERUM 6.7 g/dL (6.4-8.2); TROPONIN-I < 0.017 ng/mL (0.000-0.060)
[2020-03-31 06:55] LABS: PLATELET COUNT 138 10x3/uL (130-400)
[2020-03-31 06:58] LABS: APTT 32.6 SECONDS (22.8-39.4); INR 0.97 (0.85-1.17); PROTIME 12.9 SECONDS (11.6-15.0)
--- NOTE | 2020-03-31 09:54 | NUR ---
PT REQUESTING STADOL FOR PAIN MEDICATION.
[2020-03-31 16:02] VITALS: Ht 170.2 cm; Wt 61.4 kg
[2020-03-31 21:01] VITALS: BP 161/77
--- NOTE | 2020-03-31 23:26 | NUR ---
PT LEAVING NILDA, EMBEDDED CASE MANAGER AND SILVIA PATEL, AWARE. ASSISTED TO SPOUSE'S VEHICLE VIA WHEELCHAIR WITH PPE ACCOMPANIED BY THIS NURSE WITHOUT ISSUE.
--- NOTE | 2020-03-31 23:29 | NUR ---
UPON DISCHARGE ADVISED PT AND PT'S SPOUSE TO SELF QUARANTINE FOR AT LEAST 14 DAYS, VERBALIZED UNDERSTANDING.
== END 2020-03-31 23:31 | disposition left against medical advice (07) | DRG 177 ==
LOC: D.ER 05:47 → D.M2 09:11
PROVIDERS: Family Medicine; ADMIT Emergency Medicine; ATTEND Emergency Medicine
DX: U07.1 COVID-19 (principal); J12.89 Other viral pneumonia; K21.9 Gastro-esophageal reflux disease without esophagitis; M54.5 Low back pain; G89.29 Other chronic pain; R11.0 Nausea